=== PATIENT | female | born 1990 | race Two or more races ===

== ENCOUNTER 2021-06-06 18:23 | Inpatient (IN) | payer SELFPAY ==
[~2021-06-06] VITALS: Ht 153 cm; Wt 83.0 kg
[2021-06-06 19:37] LABS: Basophils # (auto) 0.1 10 ^3/uL (0-0.2); Basophils % (auto) 0.7 % (0.0-2.0); Eosinophils # (auto) 0 10 ^3/uL (0-0.8); Eosinophils % (auto) 0.3 % (0.0-7.0); Hematocrit 44.7 % (36.0-46.0); Hemoglobin 14.9 g/dL (12.2-16.2); Lymphocytes # (auto) 3.4 10 ^3/uL (0.4-5.4); Lymphocytes % (auto) 30.5 % (10.0-50.0); Mean Corpuscular Hemoglobin 28.3 pg (28.0-32.0); Mean Corpuscular Hgb Conc. 33.2 g/dL (32.0-36.0); Mean Corpuscular Volume 85.3 fL (80.0-100.0); Monocytes # (auto) 0.7 10 ^3/uL (0-1.3); Monocytes % (auto) 6.2 % (0.0-12.0); Neutrophils # (auto) 6.9 10 ^3/uL (1.6-8.6); Neutrophils % (auto) 62.3 % (37.0-80.0); Nucleated Red Blood Cells % 0.1 %; Red Blood Cells 5.25 10^6/uL (4.0-5.20); Red Cell Distribution Width 14.3 % (11.8-14.3)
[2021-06-06 19:54] LABS: INR 0.89 (0.9-1.15); Partial Thromboplastin Time 24.8 sec (23.6-33.0)
[2021-06-06 19:57] LABS: Albumin 2.9 g/dL (3.4-5.0); Calcium 9.3 mg/dL (8.5-10.1); Potassium 4.3 mmol/L (3.5-5.1)
[2021-06-06 20:02] LABS: BUN/Creatinine Ratio 19.8; Bilirubin, Total 0.3 mg/dL (0.2-1.0); Total Protein 6.4 g/dL (6.4-8.2)
[2021-06-06 20:05] LABS: Urine Bacteria NONE SEEN /hpf (None Seen); Urine Blood 1+ /uL (Negative); Urine Hyaline Cast FEW /lpf (0 - 2); Urine Mucus FEW (None Seen); Urine Specific Gravity 1.016 (1.001-1.035); Urine WBC 20 /hpf (0 - 5)
[2021-06-06 20:23] LABS: Amphetamine Screen, Urine NEGATIVE (NEGATIVE); Barbiturate Scree,Urine NEGATIVE (NEGATIVE); Benzodiazephine Screen, Urine NEGATIVE (NEGATIVE); Cannabinoid Screen, Urine NEGATIVE (NEGATIVE); Cocaine Screen, Urine NEGATIVE (NEGATIVE); Opiate Scree,Urine NEGATIVE (NEGATIVE); Phencyclidine Screen, Urine NEGATIVE (NEGATIVE)
[2021-06-06] MEDS ORDERED: PENICILLIN G POT 5MIL/D5 50ML 50 ML IV ONE (23:45)
[2021-06-06] MEDS ORDERED: WITCH HAZEL-GLYCERIN PAD TOP PRN (23:45)
[2021-06-06] MEDS ORDERED: LACT. RINGERS/OXYTOCIN 20UNITS 500 ML IV ONE (23:45)
[2021-06-06] MEDS ORDERED: DERMOPLAST 60ML BOTTLE TOP PRN (23:45)
[2021-06-06] MEDS ORDERED: LACT. RINGERS/OXYTOCIN 20UNITS 1,000 ML IV SCH (23:45)
[2021-06-06] MEDS ORDERED: PHISODERM TOP SOLN 240ML BTL TOP PRN (23:45)
[2021-06-06] MEDS ORDERED: LIDOCAINE 2%HCL (LOCAL ANESTH.) INJ 20ML MDV IJ PRN (23:45)
[2021-06-06] MEDS ORDERED: LACTATED RINGER'S 1,000 ML IV SCH (23:45)
[2021-06-07] MEDS ORDERED: ePHEDrine SULFATE 50 MG/ML AMP IV PRN (00:30)
[2021-06-07] MEDS ORDERED: LACTATED RINGER'S 1,000 ML IV ONE ×2 (00:30→01:45)
[2021-06-07] MEDS ORDERED: ROPIVACAINE HCL 200 ML EPI SCH ×2 (00:30→01:15)
[2021-06-07] MEDS ORDERED: PENICILLIN G POTASSIUM 2,500,000 UNITS in D5W 5% 50 ML IV SCH (03:45)
[2021-06-07] MEDS ORDERED: PENICILLIN G POT 5MILLION UNIT VIAL ONE (04:43)
[2021-06-07] MEDS ORDERED: IBUPROFEN 800 MG TAB PO PRN (06:45)
[2021-06-07] MEDS ORDERED: IBUPROFEN 600 MG TAB PO PRN (06:45)
[2021-06-07] MEDS ORDERED: ACETAMINOPHEN 325 MG TAB PO PRN (06:45)
[2021-06-07] MEDS ORDERED: ONDANSETRON ODT 4 MG TAB PO PRN (06:45)
[2021-06-07 11:00] VITALS: BP 135/75
[2021-06-07 15:00] VITALS: BP 122/69
[2021-06-07 19:25] VITALS: BP 124/80
[2021-06-07] MEDS ORDERED: DOCUSATE SOD 100 MG CAP PO SCH (22:00)
[2021-06-07 23:20] VITALS: BP 131/81
[2021-06-08 02:50] VITALS: BP 129/77
[2021-06-08 07:00] VITALS: BP 114/70
[2021-06-08 07:06] LABS: RPR Non Reactive (Non Reactive)
[2021-06-08 11:00] VITALS: BP 120/72
[2021-06-08] MEDS ORDERED: TETANUS-DIPTH-ACEL PERTUSSIS 0.5ML SYR Tdap IM ONE (14:15)
== END 2021-06-08 15:32 | disposition home or self-care (01) | DRG 806 ==
LOC: LDRP 18:23 → OBSVTOIN 23:35 → LDRP 23:35
PROVIDERS: ADMIT Obstetrics & Gynecology; ATTEND Obstetrics & Gynecology
PROC: 10E0XZZ Delivery of Products of Conception, External Approach (ICD-10-PCS; principal; 2021-06-07)
PROC: 3E0R3BZ Introduction of Anesthetic Agent into Spinal Canal, Percutaneous Approach (ICD-10-PCS; 2021-06-07)
PROC: 00HU33Z Insertion of Infusion Device into Spinal Canal, Percutaneous Approach (ICD-10-PCS; 2021-06-07)
PROC: 10907ZC Drainage of Amniotic Fluid, Therapeutic from Products of Conception, Via Natural or Artificial Opening (ICD-10-PCS; 2021-06-07)
DX: O75.3 Other infection during labor (principal); N39.0 Urinary tract infection, site not specified; Z37.0 Single live birth; Z20.822 Contact with and (suspected) exposure to COVID-19; Z3A.38 38 weeks gestation of pregnancy
CPT/HCPCS: 36415; 59025; 59409; 62282; 76805; 80053; 80307; 81001; 81002; 85025; 85610; 85730; 86592; 86703; 86762; 86850; 86900; 86901; 87340; 87426; 90715; 94760; 96360; 96361; 96365; 96366; 96374; G0378; J2540; J2590; J7060